=== PATIENT | male | born 1955 | race Caucasian/White ===

== ENCOUNTER 2016-06-21 11:59 | Emergency (ER) | payer BC, OTHER ==
[2016-06-21] MEDS ORDERED: IPRATROPIUM 0.5MG/ALBUTEROL 2.5MG INH SOL UD 3ML (DUONEB)(J7620) As Ordered ONE (12:40)
[2016-06-21] MEDS ORDERED: ALBUTEROL SULFATE 2.5 MG/0.5 ML INH NEB SOLN As Ordered ONE (12:40)
[2016-06-21] MEDS ORDERED: IBUPROFEN 600 MG TAB As Ordered ONE (12:41)
--- NOTE | 2016-06-21 13:06 | REP ---
Clinical: Cough . Comparison: 09/15/2015 . Technique: PA and lateral. Findings: The mediastinum and cardiac silhouette are normal. The lung rodriguez suggest scattered atelectasis and peribronchial thickening suggesting bronchitis and without acute consolidation, effusion, or pneumothorax. The skeletal structures are intact and normal. Impression: 1. Possible bronchitis. No focal consolidation. Signed by Rosalio Orlando MD 06/21/2016 12:56 P
--- NOTE | 2016-06-21 13:41 | EDDOCDS ---
Physician Documentation [facility] Name: Tone Wright Age: 61 yrs Sex: Male : 1955 Arrival Date: 06/21/2016 Time: 11:59 Bed I9 / 22 Private MD: Laina Cota E Disposition: 06/21/16 13:19 Discharged to Home/Self Care. Impression: Acute bronchitis. - Condition is Stable. - Discharge Instructions: Acute Bronchitis. - Prescriptions for Claritin- D 12 Hour 5-120 mg Oral Tablet Sustained Release 12 hr - take 1 tablet by ORAL route every 12 hours As needed; 30 tablet. Moxifloxacin 400 mg Oral Tablet - take 1 tablet by ORAL route once daily; 7 tablet. - Medication Reconciliation, Local Pharmacy Hours form. - Follow up: Laina Cota; When: 2 - 3 days; Reason: Recheck today's complaints, Continuance of care. - Problem is an ongoing problem. - Symptoms are unchanged. Historical: - Allergies: SULFA (SULFONAMIDES); velocef; Medrol; - Home Meds: 1. Advair Diskus 250-50 mcg/dose Inhl dsdv 1 puff 2 times per day 2. levothyroxine 125 mcg Oral tab 1 tab once daily 3. Nava 180 mg Oral tab 1 tab once daily 4. Singulair 10 mg Oral tab 1 tab once daily 5. Nasonex 50 mcg/actuation Nasal spry 2 sprays once daily 6. Ventolin HFA 90 mcg/actuation Nebulizer HFAA 2 puffs every 4-6 hours - PMHx: Hypothyroidism; Asthma; Aneurysm; - PSHx: none; - Social history: Smoking status: Patient states was never smoker of tobacco. No barriers to communication noted, The patient speaks fluent Belarusian. - Family history: Not pertinent. - : The pt / caregiver states he / she is not on anticoagulants. Home medication list is obtained from family members. - Exposure Risk Screening:: None identified. Vital Signs: 06/21 12:01 BP 114 / 67; Pulse 89; Resp 18 S; Temp 102.7(O); Pulse Ox 96% on R/A; Weight 81.65 kg / dd6 180.01 lbs (R); Height 5 ft. 4 in. (162.56 cm) (R); 12:01 Body Mass Index 30.90 (81.65 kg, 162.56 cm) dd6 MDM: 12:34 Obtain sample by nasopharyngeal swab ordered. ke 12:34 Albuterol 5 mg Nebulizer once ordered. ke 12:34 Albuterol-Ipratropium 3 ml Inhalation once ordered. ke 12:34 Call Respiratory ordered. ke 12:34 Ibuprofen 600 mg PO once ordered. ke 12:35 -Influenza A&B Rapid Antigen - Nose Ordered. EDMS 12:35 Chest, 2 View (pa\E\lat) Ordered. EDMS 12:37 Call Respiratory complete. jam1 13:40 Financial registration complete. lg Administered Medications: 12:45 Drug: Ibuprofen 600 mg [ibuprofen 600 mg tablet (1 tabs)] Route: PO; kr3 12:50 Drug: Albuterol 5 mg [albuterol sulfate 2.5 mg/0.5 mL solution for nebulization (1 mL)] cs15 Route: Nebulizer; 12:51 Drug: Albuterol-Ipratropium 3 ml [ipratropium-albuterol 0.5 mg-3 mg(2.5 mg base)/3 mL cs15 nebulization soln (3 mL)] Route: Inhalation; Signatures: Dispatcher [employer] EDMS Martha Mar, CAR STEREO INSTALLER CAR STEREO INSTALLER jam1 Tonia Gaston, José Reg lg Richard Trivedi, WARDROBE ASSISTANT WARDROBE ASSISTANT Gerri Ballesteros,RN RN kr3 Martha Brown,RN Shania An RN RN ms18 Alejandro Bowman RT cs15 MTDD
--- NOTE | 2016-06-21 13:41 | EDDOCDS ---
Nurse's Notes [facility] Name: Tone Wright Age: 61 yrs Sex: Male : 1955 Arrival Date: 06/21/2016 Time: 11:59 Bed I9 / 22 Private MD: Laina Cota E Diagnosis: Acute bronchitis Presentation: 06/21 12:16 Presenting complaint: Patient states: Pt reports coughing and a fever, waking up every ms18 hour all night long and SOB. Adult Sepsis Screening: The patient does not have new or worsening altered mentation. Patient's respiratory rate is less than 22. Systolic blood pressure is greater than 100. Patient has a qSOFA score of 0- Negative Sepsis Screen. Suicide/Homicide risk assessment- the patient denies having any suicidal and/or homicidal ideations and does not present with any other emotional, behavioral or mental health complaints. Status: Patient is not a director of convention services or dependent. Transition of care: patient was not received from another setting of care. 12:16 Acuity: LORENZO Level 3 ms18 12:16 Method Of Arrival: Walkin/Carried/Asstd ms18 Triage Assessment: 12:21 General: Appears in no apparent distress, comfortable, Behavior is appropriate for age, ms18 cooperative. Pain: Location: head Pain currently is 8 out of 10 on a pain scale. HIV screening NA for this visit Offered previously. Neurological: Level of Consciousness is awake, alert, obeys commands, Oriented to person, place, time. Respiratory: Airway is patent Respiratory effort is even, unlabored, Reports shortness of breath cough that is productive. Derm: Skin is pink, warm & dry. Historical: - Allergies: SULFA (SULFONAMIDES); velocef; Medrol; - Home Meds: 1. Advair Diskus 250-50 mcg/dose Inhl dsdv 1 puff 2 times per day 2. levothyroxine 125 mcg Oral tab 1 tab once daily 3. Nava 180 mg Oral tab 1 tab once daily 4. Singulair 10 mg Oral tab 1 tab once daily 5. Nasonex 50 mcg/actuation Nasal spry 2 sprays once daily 6. Ventolin HFA 90 mcg/actuation Nebulizer HFAA 2 puffs every 4-6 hours - PMHx: Hypothyroidism; Asthma; Aneurysm; - PSHx: none; - Social history: Smoking status: Patient states was never smoker of tobacco. No barriers to communication noted, The patient speaks fluent Thai. - Family history: Not pertinent. - : The pt / caregiver states he / she is not on anticoagulants. Home medication list is obtained from family members. - Exposure Risk Screening:: None identified. Screenin:01 Infection Control. dd6 12:49 Screening information is obtained from the patient. Fall risk: No risks identified. kr3 Assistance ADL's: requires no assistance with activities of daily living. Abuse/DV Screen: The patient / caregiver reports he/she is: not in a situation that causes fear, pain or injury. Nutritional screening: No deficits noted. Advance Directives: Currently, there is no health care proxy. home support is adequate. Assessment: 12:49 General: Appears in no apparent distress, comfortable, Behavior is cooperative. Pain: kr3 Denies pain. Neurological: Level of Consciousness is awake, alert. EENT: Reports nasal congestion. Respiratory: Airway is patent Respiratory effort is even, Reports cough that is chest congestion. Derm: Skin is normal. 13:37 General: Appears in no apparent distress, comfortable, Behavior is appropriate for age, cjh cooperative. General: first contact with patient to review discharge instructions, encouraged and answered questions, patient denies further needs. Pain: Denies pain. Neurological: Level of Consciousness is awake, alert, Oriented to person, place, time. Respiratory: Airway is patent Respiratory effort is even, unlabored, Respiratory pattern is. Derm: Skin is pink, warm & dry. Vital Signs: 12:01 BP 114 / 67; Pulse 89; Resp 18 S; Temp 102.7(O); Pulse Ox 96% on R/A; Weight 81.65 kg dd6 (R); Height 5 ft. 4 in. (162.56 cm) (R); 12:01 Body Mass Index 30.90 (81.65 kg, 162.56 cm) dd6 Vitals: 12:01 Log In Time: June 21, 2016 at 12:00. dd6 ED Course: 12:00 Patient visited by Phoenix Jerez PCA. dd6 12:00 Patient moved to Waiting dd6 12:01 Laina Cota is Private Physician. dd6 12:02 Patient moved to Pre RCE dd6 12:18 Triage Initiated ms18 12:33 [facility]edi FNP [facility]. ke 12:33 Patient visited by Richard Trivedi FNP. ke 12:33 Patient moved to ke 12:38 Patient visited by Richard Trivedi FNP. ke 12:45 -Influenza A&B Rapid Antigen - Nose Sent. kr3 12:49 The patient / caregiver is instructed regarding the plan of care and ED course. kr3 Accompanied by Family Member, Patient has correct armband on for positive identification. Bed in low position. Call light in reach. Side rails up X 1. 13:13 Patient visited by Richard Trivedi FNP. ke 13:19 Laina Cota is Referral Physician. ke 13:22 Chest, 2 View (pa\E\lat) Returned. EDMS 13:37 No IV's were initiated during this patient's visit. No procedures done that require [facility] assistance. Administered Medications: 12:45 Drug: Ibuprofen 600 mg [ibuprofen 600 mg tablet (1 tabs)] Route: PO; kr3 12:50 Drug: Albuterol 5 mg [albuterol sulfate 2.5 mg/0.5 mL solution for nebulization (1 mL)] cs15 Route: Nebulizer; 12:51 Drug: Albuterol-Ipratropium 3 ml [ipratropium-albuterol 0.5 mg-3 mg(2.5 mg base)/3 mL cs15 nebulization soln (3 mL)] Route: Inhalation; RT: 12:51 Initial Med Neb Given as ordered Patient tolerated procedure well without adverse cs15 effect. Respiratory: Respiratory effort is labored, Respiratory pattern is regular Breath sounds are diminished bilaterally. Very diminished lung sounds. 13:02 Respiratory: Breath sounds are coarse bilaterally. cs15 Order Results: Lab Order: -Influenza A&B Rapid Antigen - Nose; SPEC'M 06/21/16 12:44 Test: INFLUENZA A RAPID SCR by ICA; Value: INFLUENZA A RESULTS NEGATIVE; Status: F Test: INFLUENZA A RAPID SCR by ICA; Value: Comments:; Status: F Test: INFLUENZA B RAPID SCR by ICA; Value: INFLUENZA B RESULTS NEGATIVE; Status: F Test Note: ; The Influenza test is a direct rapid immunoassay for the qualitative detection of Influenza viral antigen. Cell culture (Viral Culture) testing should be considered to confirm NEGATIVE results and to assist in detecting other viruses that can provide similar clinical symptoms. Please contact the lab within 24 hours ([phone]) if confirmatory testing is desired. Radiology Order: Chest, 2 View (pa\E\lat) Test: Chest, 2 View (pa\E\lat) REASON FOR EXAMINATION: Cough; Clinical: Cough .; ; Comparison: 09/15/2015 .; ; Technique: PA and lateral.; ; Findings:; The mediastinum and cardiac silhouette are normal. The lung rodriguez suggest; scattered atelectasis and peribronchial thickening suggesting bronchitis and; without acute consolidation, effusion, or pneumothorax. The skeletal structures; are intact and normal.; ; Impression:; 1. Possible bronchitis. No focal consolidation.; ; ; Signed by; Rosalio Orlando MD 06/21/2016 12:56 P; Outcome: 13:19 Discharge ordered by Provider. patsy 13:37 Discharge Assessment: Patient awake, alert and oriented x 3. No cognitive and/or [facility] functional deficits noted. Patient verbalized understanding of disposition instructions. patient administered narcotics - no. The following High Risk Discharge criteria are identified: None. Discharged to home ambulatory. Condition: good Condition: stable Condition: improved. Discharge instructions given to patient, Instructed on discharge instructions, follow up and referral plans. medication usage, Demonstrated understanding of instructions, medications, Pt was receptive of discharge instructions/ teaching. Prescriptions given X 2. No special radiology studies were completed. Property :Personal belongings accompany Pt. 13:40 Patient left the ED. [facility] Signatures: Dispatcher [employer] EDMS Richard Trivedi, SUPERVISOR FABRICATION AND ASSEMBLY SUPERVISOR FABRICATION AND ASSEMBLY Gerri BallesterosRN RN salvatore3 Phoenix Jerez, AWAKE OVERNIGHT COUNSELOR AWAKE OVERNIGHT COUNSELOR dd6 Martha Brown RN RN [facility] Shania Tejeda RN RN ms18 Alejandro Bowman,RT RT cs15 MTDD
--- NOTE | 2016-06-23 14:42 | EDDOCDS ---
Physician Documentation [facility] Name: Tone Wright Age: 61 yrs Sex: Male : 1955 Arrival Date: 06/21/2016 Time: 11:59 Bed I9 / 22 Private MD: Laina Cota E Disposition: 06/21/16 13:19 Discharged to Home/Self Care. Impression: Acute bronchitis. - Condition is Stable. - Discharge Instructions: Acute Bronchitis. - Prescriptions for Claritin- D 12 Hour 5-120 mg Oral Tablet Sustained Release 12 hr - take 1 tablet by ORAL route every 12 hours As needed; 30 tablet. Moxifloxacin 400 mg Oral Tablet - take 1 tablet by ORAL route once daily; 7 tablet. - Medication Reconciliation, Local Pharmacy Hours form. - Follow up: Laina Cota; When: 2 - 3 days; Reason: Recheck today's complaints, Continuance of care. - Problem is an ongoing problem. - Symptoms are unchanged. Historical: - Allergies: SULFA (SULFONAMIDES); velocef; Medrol; - Home Meds: 1. Advair Diskus 250-50 mcg/dose Inhl dsdv 1 puff 2 times per day 2. levothyroxine 125 mcg Oral tab 1 tab once daily 3. Nava 180 mg Oral tab 1 tab once daily 4. Singulair 10 mg Oral tab 1 tab once daily 5. Nasonex 50 mcg/actuation Nasal spry 2 sprays once daily 6. Ventolin HFA 90 mcg/actuation Nebulizer HFAA 2 puffs every 4-6 hours - PMHx: Hypothyroidism; Asthma; Aneurysm; - PSHx: none; - Social history: Smoking status: Patient states was never smoker of tobacco. No barriers to communication noted, The patient speaks fluent Irish. - Family history: Not pertinent. - : The pt / caregiver states he / she is not on anticoagulants. Home medication list is obtained from family members. - Exposure Risk Screening:: None identified. Vital Signs: 06/21 12:01 BP 114 / 67; Pulse 89; Resp 18 S; Temp 102.7(O); Pulse Ox 96% on R/A; Weight 81.65 kg / dd6 180.01 lbs (R); Height 5 ft. 4 in. (162.56 cm) (R); 13:40 BP 122 / 72; Pulse 82; Resp 18; Temp 101.3; Pulse Ox 96% ; Pain 2/10; jam1 12:01 Body Mass Index 30.90 (81.65 kg, 162.56 cm) dd6 MDM: 12:34 Obtain sample by nasopharyngeal swab ordered. ke 12:34 Albuterol 5 mg Nebulizer once ordered. ke 12:34 Albuterol-Ipratropium 3 ml Inhalation once ordered. ke 12:34 Call Respiratory ordered. ke 12:34 Ibuprofen 600 mg PO once ordered. ke 12:35 -Influenza A&B Rapid Antigen - Nose Ordered. EDMS 12:35 Chest, 2 View (pa\E\lat) Ordered. EDMS 12:37 Call Respiratory complete. jam1 13:40 Financial registration complete. lg 14:41 T-Sheet-- Draft Copy was scanned into Contrib and attached to record. gb 15:16 COUNT INCLUDES THE [facility] Payment Agreement was scanned into Contrib and attached to record. lg Administered Medications: 12:45 Drug: Ibuprofen 600 mg [ibuprofen 600 mg tablet (1 tabs)] Route: PO; kr3 12:50 Drug: Albuterol 5 mg [albuterol sulfate 2.5 mg/0.5 mL solution for nebulization (1 mL)] cs15 Route: Nebulizer; 12:51 Drug: Albuterol-Ipratropium 3 ml [ipratropium-albuterol 0.5 mg-3 mg(2.5 mg base)/3 mL cs15 nebulization soln (3 mL)] Route: Inhalation; Signatures: Dispatcher [employer] EDMS Martha Mar, BARNWORKER GROOM BARNWORKER GROOM jam1 Olivia Salcedo, Reg Reg gb Tonia Gaston, Reg Reg lg Richard Trivedi, HOME HEALTH AID HOME HEALTH AID Gerri Ballesteros,RN RN kr3 Martha Brown,RN Shania An,RN RN ms18 Alejandro Bowman RT cs15 The chart was reviewed and I authenticate all verbal orders and agree with the evaluation and treatment provided.Attachments: 14:41 T-Sheet-- Draft Copy gb 15:16 COUNT INCLUDES THE [facility] Payment Agreement lg Chart Complete MTDD
--- NOTE | 2016-06-23 14:42 | EDDOCDS ---
Physician Documentation [facility] Name: Tone Wright Age: 61 yrs Sex: Male : 1955 Arrival Date: 06/21/2016 Time: 11:59 Bed I9 / 22 Private MD: Laina Cota E Disposition: 06/21/16 13:19 Discharged to Home/Self Care. Impression: Acute bronchitis. - Condition is Stable. - Discharge Instructions: Acute Bronchitis. - Prescriptions for Claritin- D 12 Hour 5-120 mg Oral Tablet Sustained Release 12 hr - take 1 tablet by ORAL route every 12 hours As needed; 30 tablet. Moxifloxacin 400 mg Oral Tablet - take 1 tablet by ORAL route once daily; 7 tablet. - Medication Reconciliation, Local Pharmacy Hours form. - Follow up: Laina Cota; When: 2 - 3 days; Reason: Recheck today's complaints, Continuance of care. - Problem is an ongoing problem. - Symptoms are unchanged. Historical: - Allergies: SULFA (SULFONAMIDES); velocef; Medrol; - Home Meds: 1. Advair Diskus 250-50 mcg/dose Inhl dsdv 1 puff 2 times per day 2. levothyroxine 125 mcg Oral tab 1 tab once daily 3. Nava 180 mg Oral tab 1 tab once daily 4. Singulair 10 mg Oral tab 1 tab once daily 5. Nasonex 50 mcg/actuation Nasal spry 2 sprays once daily 6. Ventolin HFA 90 mcg/actuation Nebulizer HFAA 2 puffs every 4-6 hours - PMHx: Hypothyroidism; Asthma; Aneurysm; - PSHx: none; - Social history: Smoking status: Patient states was never smoker of tobacco. No barriers to communication noted, The patient speaks fluent Romanian. - Family history: Not pertinent. - : The pt / caregiver states he / she is not on anticoagulants. Home medication list is obtained from family members. - Exposure Risk Screening:: None identified. Vital Signs: 06/21 12:01 BP 114 / 67; Pulse 89; Resp 18 S; Temp 102.7(O); Pulse Ox 96% on R/A; Weight 81.65 kg / dd6 180.01 lbs (R); Height 5 ft. 4 in. (162.56 cm) (R); 13:40 BP 122 / 72; Pulse 82; Resp 18; Temp 101.3; Pulse Ox 96% ; Pain 2/10; jam1 12:01 Body Mass Index 30.90 (81.65 kg, 162.56 cm) dd6 MDM: 12:34 Obtain sample by nasopharyngeal swab ordered. ke 12:34 Albuterol 5 mg Nebulizer once ordered. ke 12:34 Albuterol-Ipratropium 3 ml Inhalation once ordered. ke 12:34 Call Respiratory ordered. ke 12:34 Ibuprofen 600 mg PO once ordered. ke 12:35 -Influenza A&B Rapid Antigen - Nose Ordered. EDMS 12:35 Chest, 2 View (pa\E\lat) Ordered. EDMS 12:37 Call Respiratory complete. jam1 13:40 Financial registration complete. lg 14:41 T-Sheet-- Draft Copy was scanned into [employer] and attached to record. gb 15:16 [facility] Payment Agreement was scanned into [employer] and attached to record. lg Administered Medications: 12:45 Drug: Ibuprofen 600 mg [ibuprofen 600 mg tablet (1 tabs)] Route: PO; kr3 12:50 Drug: Albuterol 5 mg [albuterol sulfate 2.5 mg/0.5 mL solution for nebulization (1 mL)] cs15 Route: Nebulizer; 12:51 Drug: Albuterol-Ipratropium 3 ml [ipratropium-albuterol 0.5 mg-3 mg(2.5 mg base)/3 mL cs15 nebulization soln (3 mL)] Route: Inhalation; Signatures: Dispatcher Med[employer] EDMS Martha Mar, DOG FOOD DOUGH MIXER DOG FOOD DOUGH MIXER jam1 Olivia Salcedo, Reg Reg gb Tonia Gaston, Reg Reg lg Richard Trivedi, SINGLE CORNER CUTTER SINGLE CORNER CUTTER Greri Ballesteros,RN RN kr3 Martha Brown,RN Shania An,RN RN ms18 Alejandro Bowman RT cs15 The chart was reviewed and I authenticate all verbal orders and agree with the evaluation and treatment provided.Attachments: 14:41 T-Sheet-- Draft Copy gb 15:16 [facility] Payment Agreement lg Chart Complete MTDD
--- NOTE | 2016-06-23 14:42 | EDDOCDS ---
Nurse's Notes [facility] Name: Tone Wright Age: 61 yrs Sex: Male : 1955 Arrival Date: 06/21/2016 Time: 11:59 Bed I9 / 22 Private MD: Laina Cota E Diagnosis: Acute bronchitis Presentation: 06/21 12:16 Presenting complaint: Patient states: Pt reports coughing and a fever, waking up every ms18 hour all night long and SOB. Adult Sepsis Screening: The patient does not have new or worsening altered mentation. Patient's respiratory rate is less than 22. Systolic blood pressure is greater than 100. Patient has a qSOFA score of 0- Negative Sepsis Screen. Suicide/Homicide risk assessment- the patient denies having any suicidal and/or homicidal ideations and does not present with any other emotional, behavioral or mental health complaints. Status: Patient is not a service associate or dependent. Transition of care: patient was not received from another setting of care. 12:16 Acuity: LORENZO Level 3 ms18 12:16 Method Of Arrival: Walkin/Carried/Asstd ms18 Triage Assessment: 12:21 General: Appears in no apparent distress, comfortable, Behavior is appropriate for age, ms18 cooperative. Pain: Location: head Pain currently is 8 out of 10 on a pain scale. HIV screening NA for this visit Offered previously. Neurological: Level of Consciousness is awake, alert, obeys commands, Oriented to person, place, time. Respiratory: Airway is patent Respiratory effort is even, unlabored, Reports shortness of breath cough that is productive. Derm: Skin is pink, warm & dry. Historical: - Allergies: SULFA (SULFONAMIDES); velocef; Medrol; - Home Meds: 1. Advair Diskus 250-50 mcg/dose Inhl dsdv 1 puff 2 times per day 2. levothyroxine 125 mcg Oral tab 1 tab once daily 3. Nava 180 mg Oral tab 1 tab once daily 4. Singulair 10 mg Oral tab 1 tab once daily 5. Nasonex 50 mcg/actuation Nasal spry 2 sprays once daily 6. Ventolin HFA 90 mcg/actuation Nebulizer HFAA 2 puffs every 4-6 hours - PMHx: Hypothyroidism; Asthma; Aneurysm; - PSHx: none; - Social history: Smoking status: Patient states was never smoker of tobacco. No barriers to communication noted, The patient speaks fluent [place]. - Family history: Not pertinent. - : The pt / caregiver states he / she is not on anticoagulants. Home medication list is obtained from family members. - Exposure Risk Screening:: None identified. Screenin:01 Infection Control. dd6 12:49 Screening information is obtained from the patient. Fall risk: No risks identified. kr3 Assistance ADL's: requires no assistance with activities of daily living. Abuse/DV Screen: The patient / caregiver reports he/she is: not in a situation that causes fear, pain or injury. Nutritional screening: No deficits noted. Advance Directives: Currently, there is no health care proxy. home support is adequate. Assessment: 12:49 General: Appears in no apparent distress, comfortable, Behavior is cooperative. Pain: kr3 Denies pain. Neurological: Level of Consciousness is awake, alert. EENT: Reports nasal congestion. Respiratory: Airway is patent Respiratory effort is even, Reports cough that is chest congestion. Derm: Skin is normal. 13:37 General: Appears in no apparent distress, comfortable, Behavior is appropriate for age, cjh cooperative. General: first contact with patient to review discharge instructions, encouraged and answered questions, patient denies further needs. Pain: Denies pain. Neurological: Level of Consciousness is awake, alert, Oriented to person, place, time. Respiratory: Airway is patent Respiratory effort is even, unlabored, Respiratory pattern is. Derm: Skin is pink, warm & dry. Vital Signs: 12:01 BP 114 / 67; Pulse 89; Resp 18 S; Temp 102.7(O); Pulse Ox 96% on R/A; Weight 81.65 kg dd6 (R); Height 5 ft. 4 in. (162.56 cm) (R); 13:40 BP 122 / 72; Pulse 82; Resp 18; Temp 101.3; Pulse Ox 96% ; Pain 2/10; jam1 12:01 Body Mass Index 30.90 (81.65 kg, 162.56 cm) dd6 Vitals: 12:01 Log In Time: June 21, 2016 at 12:00. dd6 ED Course: 12:00 Patient visited by Phoenix Jerez, TANYA. dd6 12:00 Patient moved to Waiting dd6 12:01 Laina Cota is Private Physician. dd6 12:02 Patient moved to Pre RCE dd6 12:18 Triage Initiated ms18 12:33 [facility]. ke 12:33 Patient visited by Richard Trivedi FNP. ke 12:33 Patient moved to I ke 12:38 Patient visited by Richard Trivedi FNP. ke 12:45 -Influenza A&B Rapid Antigen - Nose Sent. kr3 12:49 The patient / caregiver is instructed regarding the plan of care and ED course. kr3 Accompanied by Family Member, Patient has correct armband on for positive identification. Bed in low position. Call light in reach. Side rails up X 1. 13:13 Patient visited by Richard Trivedi FNP. ke 13:19 Laina Cota is Referral Physician. ke 13:22 Chest, 2 View (pa\E\lat) Returned. EDMS 13:37 No IV's were initiated during this patient's visit. No procedures done that require [facility] assistance. 14:41 T-Sheet-- Draft Copy was scanned into [employer] and attached to record. gb 15:16 [facility] Payment Agreement was scanned into [employer] and attached to record. lg Administered Medications: 12:45 Drug: Ibuprofen 600 mg [ibuprofen 600 mg tablet (1 tabs)] Route: PO; kr3 12:50 Drug: Albuterol 5 mg [albuterol sulfate 2.5 mg/0.5 mL solution for nebulization (1 mL)] cs15 Route: Nebulizer; 12:51 Drug: Albuterol-Ipratropium 3 ml [ipratropium-albuterol 0.5 mg-3 mg(2.5 mg base)/3 mL cs15 nebulization soln (3 mL)] Route: Inhalation; RT: 12:51 Initial Med Neb Given as ordered Patient tolerated procedure well without adverse cs15 effect. Respiratory: Respiratory effort is labored, Respiratory pattern is regular Breath sounds are diminished bilaterally. Very diminished lung sounds. 13:02 Respiratory: Breath sounds are coarse bilaterally. cs15 Order Results: Lab Order: -Influenza A&B Rapid Antigen - Nose; SPEC'M 06/21/16 12:44 Test: INFLUENZA A RAPID SCR by ICA; Value: INFLUENZA A RESULTS NEGATIVE; Status: F Test: INFLUENZA A RAPID SCR by ICA; Value: Comments:; Status: F Test: INFLUENZA B RAPID SCR by ICA; Value: INFLUENZA B RESULTS NEGATIVE; Status: F Test Note: ; The Influenza test is a direct rapid immunoassay for the qualitative detection of Influenza viral antigen. Cell culture (Viral Culture) testing should be considered to confirm NEGATIVE results and to assist in detecting other viruses that can provide similar clinical symptoms. Please contact the lab within 24 hours ([phone]) if confirmatory testing is desired. Radiology Order: Chest, 2 View (pa\E\lat) Test: Chest, 2 View (pa\E\lat) REASON FOR EXAMINATION: Cough; Clinical: Cough .; ; Comparison: 09/15/2015 .; ; Technique: PA and lateral.; ; Findings:; The mediastinum and cardiac silhouette are normal. The lung rodriguez suggest; scattered atelectasis and peribronchial thickening suggesting bronchitis and; without acute consolidation, effusion, or pneumothorax. The skeletal structures; are intact and normal.; ; Impression:; 1. Possible bronchitis. No focal consolidation.; ; ; Signed by; Rosalio Orlando MD 06/21/2016 12:56 P; Outcome: 13:19 Discharge ordered by Provider. patsy 13:37 Discharge Assessment: Patient awake, alert and oriented x 3. No cognitive and/or [facility] functional deficits noted. Patient verbalized understanding of disposition instructions. patient administered narcotics - no. The following High Risk Discharge criteria are identified: None. Discharged to home ambulatory. Condition: good Condition: stable Condition: improved. Discharge instructions given to patient, Instructed on discharge instructions, follow up and referral plans. medication usage, Demonstrated understanding of instructions, medications, Pt was receptive of discharge instructions/ teaching. Prescriptions given X 2. No special radiology studies were completed. Property :Personal belongings accompany Pt. 13:40 Patient left the ED. [facility] Signatures: Dispatcher [employer] EDMS Martha Mar, CONTROL SYSTEMS ENG CONTROL SYSTEMS ENG jam1 Olivia Salcedo, Reg Reg gb Tonia Gaston, Reg Reg lg Richard Trivedi, [employer] Gerri Ballesteros,RN RN kr3 Phoenix Jerez, CONTROL SYSTEMS ENG CONTROL SYSTEMS ENG dd6 Martha Brown,RN TRISHA [facility] Shania Tejeda RN RN ms18 Alejandro Bowman,RT RT cs15 Chart Complete MTDD
== END 2016-06-21 13:40 | disposition home or self-care (01) ==
LOC: M ED 11:59
DX: J20.9 Acute bronchitis, unspecified (principal); J45.909 Unspecified asthma, uncomplicated; E03.9 Hypothyroidism, unspecified; Z79.51 Long term (current) use of inhaled steroids; Z79.899 Other long term (current) drug therapy; Z88.2 Allergy status to sulfonamides; Z88.1 Allergy status to other antibiotic agents; Z88.8 Allergy status to other drugs, medicaments and biological substances

== ENCOUNTER → 2016-06-23 | Outpatient (REF) | payer OTHER | LOC: M LAB REF 12:32 | PROVIDERS: ATTEND Internal Medicine | DX: R50.9 Fever, unspecified (principal); J20.9 Acute bronchitis, unspecified ==

== ENCOUNTER → 2016-06-30 | Outpatient (REF) | payer OTHER | LOC: M LAB REF 16:27 | PROVIDERS: ATTEND Internal Medicine | DX: J18.9 Pneumonia, unspecified organism (principal); R06.02 Shortness of breath; J45.21 Mild intermittent asthma with (acute) exacerbation ==

== ENCOUNTER 2017-05-16 20:23 | Emergency (ER) | payer OTHER ==
[~2017-05-16] VITALS: Ht 162.6 cm; Wt 78.2 kg
[2017-05-16] MEDS ORDERED: SYNT100T PO (20:45)
[2017-05-16] MEDS ORDERED: SING10TA32 PO (20:45)
[2017-05-16] MEDS ORDERED: LEVA1.25 INH (20:45)
[2017-05-16] MEDS ORDERED: ALLE180T33 PO (20:45)
[2017-05-16] MEDS ORDERED: FLUT1LOT EX (20:45)
[2017-05-16] MEDS ORDERED: ADV250INH INH (20:45)
[2017-05-16] MEDS ORDERED: TYLE500T78 PO (20:48)
[2017-05-17] MEDS ORDERED: NS 500 ML IV ONE (02:45)
[2017-05-17 03:19] LABS: BASO % 0.5 % (0.0-1.0); EOS % 0.1 % (0.0-3.0); IMMATURE GRANULOCYTE % 0.1 % (0-0); LYMPH # 1.2 10^3/uL (1.5-4.5); LYMPH % 16.4 % (24.0-44.0); MEAN CORPUSCULAR HEMOGLOBIN 26.1 pg (27.0-33.0); MEAN CORPUSCULAR HGB CONC 32.4 g/dl (32.0-36.5); MEAN CORPUSCULAR VOLUME 80.5 fl (80.0-96.0); MONO # 1.3 10^3/uL (0.0-0.8); MONO % 17.6 % (0.0-5.0); NEUTROPHILS # 4.8 10^3/uL (1.8-7.7); NEUTROPHILS % 65.3 % (36.0-66.0); PLATELET COUNT, AUTOMATED 188 10^3/uL (150-450); RED CELL DISTRIBUTION WIDTH 18.7 % (11.5-14.5); WHITE BLOOD COUNT 7.4 10^3/uL (4.0-10.0)
[2017-05-17] MEDS: IPRATROPIUM 0.5MG/ALBUTEROL 2.5MG INH SOL UD 3ML (DUONEB)(J7620) NEB SCH ×2 (03:24→03:25)
[2017-05-17 03:46] LABS: ANION GAP 7 MEQ/L (8-16); BLOOD UREA NITROGEN 12 MG/DL (7-18); CALCIUM LEVEL 8.7 MG/DL (8.5-10.1); CARBON DIOXIDE LEVEL 29 MEQ/L (21-32); CHLORIDE LEVEL 104 MEQ/L (98-107); CREATININE FOR GFR 1.14 MG/DL (0.70-1.30); GLOMERULAR FILTRATION RATE > 60.0 (>56); GLUCOSE, FASTING 95 MG/DL (70-105); POTASSIUM SERUM 4.3 MEQ/L (3.5-5.1); SODIUM LEVEL 140 MEQ/L (136-145)
[2017-05-17] MEDS ORDERED: LEVA750T7 PO (05:19)
[2017-05-17] MEDS ORDERED: TESS100C PO (05:19)
[2017-05-17 05:29] VITALS: BP 134/74
[2017-05-17] MEDS ORDERED: LevoFLOXacin 750 MG TABLET PO ONE (05:30)
--- NOTE | 2017-05-17 07:55 | REP ---
Clinical: Shortness of breath . Comparison: 06/21/2016 . Technique: PA and lateral. Findings: The mediastinum and cardiac silhouette are normal. Trace basilar atelectasis cannot be excluded without acute consolidation, effusion, or pneumothorax. The skeletal structures are intact and normal. Impression: 1. Question trace basilar atelectasis based on lateral radiograph. Signed by Rosalio Orlando MD 05/17/2017 07:46 A
== END 2017-05-17 05:30 | disposition home or self-care (01) ==
LOC: M ED 20:23
DX: J18.9 Pneumonia, unspecified organism (principal); Z88.8 Allergy status to other drugs, medicaments and biological substances; Z88.2 Allergy status to sulfonamides; Z88.1 Allergy status to other antibiotic agents; Z79.899 Other long term (current) drug therapy; Z79.51 Long term (current) use of inhaled steroids

== ENCOUNTER → 2017-05-19 | Outpatient (CLI) | payer OTHER ==
[~2017-05-19] MED LIST: ADV250INH INH; ALLE180T33 PO; FLUT1LOT EX; LEVA1.25 INH; LEVA750T7 PO; SING10TA32 PO; SYNT100T PO; TESS100C PO; TYLE500T78 PO
--- NOTE | 2017-05-19 15:33 | REP ---
Chest two views HISTORY: Cough Comparison: 05/16/2017 The lungs are clear. The heart is normal in size. The pulmonary vasculature is normal in appearance. The bony structure is intact. IMPRESSION: No acute disease. Signed by Shahzad Dumont MD 05/19/2017 03:26 P
== END ==
LOC: M WUC 15:06
PROVIDERS: ATTEND Internal Medicine
DX: R05 Cough (principal)

== ENCOUNTER → 2017-05-19 | Outpatient (REF) | payer OTHER | LOC: M LAB REF 18:21 | PROVIDERS: ATTEND Internal Medicine | DX: J18.8 Other pneumonia, unspecified organism (principal) ==

== ENCOUNTER 2017-07-18 11:24 | Emergency (ER) | payer OTHER ==
[2017-07-18] MEDS: LIDOCAINE W/EPINEPHRINE 1% 20ML VIAL SC (12:00)
[2017-07-18] MEDS: ADACEL/BOOSTRIX VACCINE (DIPHTH/PERTUSS/ACELL/TETANUS)0.5ML SYR (90715) IM (12:00)
[2017-07-18] MEDS ORDERED: NEOSPORIN OINT 0.9 GM PKT (FLOOR STOCK) As Ordered (12:32)
== END 2017-07-18 13:33 | disposition home or self-care (01) ==
LOC: M ED 11:24
DX: S61.511A Laceration without foreign body of right wrist, initial encounter (principal); W26.0XXA Contact with knife, initial encounter; Y92.9 Unspecified place or not applicable; Y93.89 Activity, other specified; Y99.0 Civilian activity done for income or pay; I34.1 Nonrheumatic mitral (valve) prolapse; E03.9 Hypothyroidism, unspecified; J45.909 Unspecified asthma, uncomplicated; Z79.899 Other long term (current) drug therapy; Z88.8 Allergy status to other drugs, medicaments and biological substances; Z88.2 Allergy status to sulfonamides; Z88.1 Allergy status to other antibiotic agents
CPT/HCPCS: 90715

== ENCOUNTER → 2017-08-23 | Outpatient (REF) | payer OTHER ==
[2017-08-23 20:23] LABS: INFLUENZA A AMPLIFICATION POSITIVE (NEGATIVE); INFLUENZA B AMPLIFICATION NEGATIVE (NEGATIVE)
== END ==
LOC: M LAB REF 16:37
DX: B34.9 Viral infection, unspecified (principal)

== ENCOUNTER → 2018-01-03 | Outpatient (REF) | payer OTHER ==
[2018-01-03 18:04] LABS: FERRITIN 7 NG/ML (26-388); IRON (FE) 34 UG/DL (65-175); PERCENT SATURATION 8.3 % (19.7-50.0); TOTAL IRON BINDING CAPACITY 411 UG/DL (250-450)
== END ==
LOC: M LAB REF 17:22
DX: D64.9 Anemia, unspecified (principal)

== ENCOUNTER 2018-01-22 15:53 | Emergency (ER) | payer OTHER ==
[2018-01-22] MEDS: NS 1,000 ML IV (16:44)
[2018-01-22 16:49] LABS: BASO % 0.7 % (0.0-1.0); EOS # 0.1 10^3/uL (0.0-0.50); HEMATOCRIT 44.1 % (42.0-52.0); HEMOGLOBIN 14.1 g/dl (13.5-17.5); IMMATURE GRANULOCYTE % 0.3 % (0-3.0); LYMPH # 0.8 10^3/uL (1.5-4.5); LYMPH % 12.3 % (24.0-44.0); MEAN CORPUSCULAR HEMOGLOBIN 26.2 pg (27.0-33.0); MONO # 0.7 10^3/uL (0.0-0.8); MONO % 12.2 % (0.0-5.0); NEUTROPHILS # 4.5 10^3/uL (1.8-7.7); NEUTROPHILS % 73.5 % (36.0-66.0); PLATELET COUNT, AUTOMATED 162 10^3/uL (150-450); RED BLOOD COUNT 5.38 10^6/uL (4.30-6.10); RED CELL DISTRIBUTION WIDTH 18.3 % (11.5-14.5); WHITE BLOOD COUNT 6.1 10^3/uL (4.0-10.0)
[2018-01-22 16:52] LABS: KETONE, URINE AUTO RFX NEGATIVE (NEGATIVE); LEUKOCYTE ESTERASE UR AUTO RFX NEGATIVE (NEGATIVE); NITRITE, URINE AUTO RFX NEGATIVE (NEGATIVE); RBC, URINE AUTO RFX 1 /HPF (0-3); SQUAM EPITHELIAL CELL UR AURFX 0 /HPF (0-6); WBC, URINE AUTO RFX 1 /HPF (0-3)
[2018-01-22 17:41] LABS: ALBUMIN 3.5 GM/DL (3.2-5.2); ALBUMIN/GLOBULIN RATIO 0.83 (1.00-1.93); ALKALINE PHOSPHATASE 76 U/L (45-117); ALT/SGPT 30 U/L (12-78); ANION GAP 8 MEQ/L (8-16); AST/SGOT 23 U/L (7-37); BILIRUBIN,DIRECT 0.2 MG/DL (0.0-0.2); BILIRUBIN,TOTAL 0.7 MG/DL (0.2-1.0); BLOOD UREA NITROGEN 13 MG/DL (7-18); CALCIUM LEVEL 8.5 MG/DL (8.8-10.2); CARBON DIOXIDE LEVEL 25 MEQ/L (21-32); CHLORIDE LEVEL 112 MEQ/L (98-107); CREATININE FOR GFR 1.15 MG/DL (0.70-1.30); GLOMERULAR FILTRATION RATE > 60.0 (>49); GLUCOSE, FASTING 92 MG/DL (70-100); LIPASE 120 U/L (73-393); POTASSIUM SERUM 4.2 MEQ/L (3.5-5.1); SODIUM LEVEL 145 MEQ/L (136-145); TOTAL PROTEIN 7.7 GM/DL (6.4-8.2)
[2018-01-22] MEDS ORDERED: ISOVUE-370 76% 100ML VIAL (Q9967) As Ordered (18:00)
== END 2018-01-22 19:06 | disposition home or self-care (01) ==
LOC: M ED 15:53
DX: R10.9 Unspecified abdominal pain (principal); N28.1 Cyst of kidney, acquired; N40.0 Benign prostatic hyperplasia without lower urinary tract symptoms; I34.1 Nonrheumatic mitral (valve) prolapse; Z88.8 Allergy status to other drugs, medicaments and biological substances; Z88.2 Allergy status to sulfonamides; Z88.1 Allergy status to other antibiotic agents; Z79.899 Other long term (current) drug therapy; Z79.51 Long term (current) use of inhaled steroids
CPT/HCPCS: Q9967

== ENCOUNTER 2018-01-29 20:18 | Emergency (ER) | payer OTHER ==
[2018-01-29] MEDS: NS 1,000 ML IV (22:00)
[2018-01-29 22:24] LABS: HEMATOCRIT 37.7 % (42.0-52.0); HEMOGLOBIN 12.4 g/dl (13.5-17.5); MEAN CORPUSCULAR HEMOGLOBIN 25.9 pg (27.0-33.0); MEAN CORPUSCULAR HGB CONC 32.9 g/dl (32.0-36.5); MEAN CORPUSCULAR VOLUME 78.9 fl (80.0-96.0); PLATELET COUNT, AUTOMATED 269 10^3/uL (150-450); RED BLOOD COUNT 4.78 10^6/uL (4.30-6.10); RED CELL DISTRIBUTION WIDTH 18.6 % (11.5-14.5)
[2018-01-29 22:39] LABS: CONTROL LINE MONO INT CTR LINE PRESENT; MONO SCRN NEGATIVE (NEGATIVE)
[2018-01-29 22:41] LABS: ANION GAP 5 MEQ/L (8-16); BLOOD UREA NITROGEN 11 MG/DL (7-18); CALCIUM LEVEL 8.7 MG/DL (8.8-10.2); CARBON DIOXIDE LEVEL 27 MEQ/L (21-32); CHLORIDE LEVEL 103 MEQ/L (98-107); CREATININE FOR GFR 1.18 MG/DL (0.70-1.30); GLOMERULAR FILTRATION RATE > 60.0 (>49); GLUCOSE, FASTING 112 MG/DL (70-100); POTASSIUM SERUM 3.9 MEQ/L (3.5-5.1); SODIUM LEVEL 135 MEQ/L (136-145)
[2018-01-29 22:42] LABS: ERYTHROCYTE SEDIMENTATION RATE 30 mm/hr (0-20)
[2018-01-29 22:45] LABS: LACTIC ACID SEPSIS PROTOCOL 0.8 MMOL/L (0.4-2.0)
[2018-01-29 22:55] LABS: KETONE, URINE AUTO RFX TRACE mg/dL (NEGATIVE); LEUKOCYTE ESTERASE UR AUTO RFX NEGATIVE (NEGATIVE); MUCUS, URINE RFX SMALL (NEGATIVE); NITRITE, URINE AUTO RFX NEGATIVE (NEGATIVE); RBC, URINE AUTO RFX 2 /HPF (0-3); SQUAM EPITHELIAL CELL UR AURFX 0 /HPF (0-6); WBC, URINE AUTO RFX 2 /HPF (0-3)
[2018-01-29] MEDS: PIPERACILLIN/TAZOBACTAM SOD 3.375 GM in D5W MINI-BAG PLUS 50 ML IV (23:20)
[2018-01-29] MEDS: diphenhydrAMINE INJ 50MG/ML VIAL (J1200) IV (23:20)
== END 2018-01-30 00:31 | disposition home or self-care (01) ==
LOC: M ED 01-30 00:31
DX: L03.112 Cellulitis of left axilla (principal); J45.909 Unspecified asthma, uncomplicated; I34.1 Nonrheumatic mitral (valve) prolapse
CPT/HCPCS: J1200

== ENCOUNTER → 2018-02-13 | Outpatient (REF) | payer OTHER ==
[2018-02-13 19:30] LABS: C REACTIVE PROTEIN QUANTITATIV < 0.30 MG/DL (0.00-0.30)
== END ==
LOC: M LAB REF 17:16
DX: L03.114 Cellulitis of left upper limb (principal)

== ENCOUNTER 2018-03-09 10:54 | Day surgery (SDC) | payer OTHER ==
[2018-03-09] MEDS: NS 1,000 ML IV (11:15)
[2018-03-09] MEDS ORDERED: PROPOFOL 200 MG/20 ML VIAL As Ordered (11:55)
[2018-03-09] MEDS ORDERED: fentaNYL 100 MCG/2 ML INJECTION (J3010) As Ordered (11:55)
[2018-03-09] MEDS ORDERED: LIDOCAINE 2% INJ 100 MG/5 ML SDV (FOR ANES.) As Ordered (11:55)
== END 2018-03-09 13:29 | disposition home or self-care (01) ==
LOC: M OPP 10:54
DX: D50.9 Iron deficiency anemia, unspecified (principal); D12.5 Benign neoplasm of sigmoid colon; D12.4 Benign neoplasm of descending colon; D12.3 Benign neoplasm of transverse colon; D12.2 Benign neoplasm of ascending colon; K64.8 Other hemorrhoids; I34.1 Nonrheumatic mitral (valve) prolapse; E03.9 Hypothyroidism, unspecified; K21.9 Gastro-esophageal reflux disease without esophagitis; R12 Heartburn; J45.909 Unspecified asthma, uncomplicated; Z88.1 Allergy status to other antibiotic agents; Z88.8 Allergy status to other drugs, medicaments and biological substances; Z88.2 Allergy status to sulfonamides; Z79.899 Other long term (current) drug therapy; Z80.9 Family history of malignant neoplasm, unspecified
CPT/HCPCS: 45385

== ENCOUNTER → 2018-05-18 | Outpatient (REF) | payer OTHER ==
[2018-05-18 18:27] LABS: FERRITIN 44 NG/ML (26-388); IRON (FE) 60 UG/DL (65-175); PERCENT SATURATION 19.2 % (19.7-50.0); TOTAL IRON BINDING CAPACITY 313 UG/DL (250-450)
== END ==
LOC: M LAB REF 16:44
DX: D50.9 Iron deficiency anemia, unspecified (principal)
CPT/HCPCS: 83550

== ENCOUNTER → 2018-09-13 | Outpatient (REF) | payer OTHER ==
[~2018-09-13] MED LIST changes: +ACET160S5 PO; +ACET1TAB55 PO; +AUGM875T28 PO; +FERR32TA PO; +FERRPOW27 XX; +LEVA1.2525; +LEVO125T4 PO; +RANI1TAB6 PO; +VENTAER INH
[2018-09-14 18:20] LABS: PERCENT SATURATION 42.4 % (19.7-50.0)
== END ==
LOC: M LAB REF 16:30
PROVIDERS: ATTEND Internal Medicine
DX: D50.9 Iron deficiency anemia, unspecified (principal)

== ENCOUNTER → 2018-12-03 | Outpatient (CLI) | payer OTHER ==
[~2018-12-03] MED LIST changes: -ACET160S5 PO; +TGTSUS3 PO
== END ==
LOC: M LAB 19:11
PROVIDERS: ATTEND Urology
DX: Z12.5 Encounter for screening for malignant neoplasm of prostate (principal)
CPT/HCPCS: 36415; G0103

== ENCOUNTER → 2018-12-05 | Outpatient (CLI) | payer OTHER ==
[2018-12-06 14:47] LABS: PSA TOTAL 3.6 ng/mL (0.0-4.0)
== END ==
LOC: M SMT 10:22
PROVIDERS: ATTEND Urology
DX: R97.20 Elevated prostate specific antigen [PSA] (principal)

== ENCOUNTER → 2019-03-15 | Outpatient (REF) | payer OTHER ==
[~2019-03-15] MED LIST changes: +RANI-356 PO; -RANI1TAB6 PO
[2019-03-15 13:19] LABS: PERCENT SATURATION 35.3 % (19.7-50.0)
== END ==
LOC: M LAB REF 12:25
PROVIDERS: ATTEND Internal Medicine
DX: D50.9 Iron deficiency anemia, unspecified (principal)

== ENCOUNTER → 2019-05-28 | Outpatient (CLI) | payer OTHER ==
[~2019-05-28] MED LIST changes: -RANI-356 PO; +RANI-397 PO
[2019-05-31 00:07] LABS: PSA FREE 0.69 ng/mL; PSA TOTAL 4.3 ng/mL (0.0-4.0)
== END ==
LOC: M PLALAB 10:25
PROVIDERS: ATTEND Urology
DX: R97.20 Elevated prostate specific antigen [PSA] (principal)

== ENCOUNTER → 2019-06-26 | Outpatient (CLI) | payer OTHER ==
--- NOTE | 2019-06-26 13:02 | REPPI ---
Prostate sonography: History: Elevated PSA Sonographic findings: Trans rectal prostate sonography demonstrates unremarkable seminal vesicles. Prostate gland is heterogeneously enlarged with calcifications and cystic changes noted. Glandular dimensions are measured at 4.5 x 3.2 x 5.2 cm with a calculated glandular volume of 38.8 ml. There is a 7 mm hypoechoic nodule on the left at the apex. Transrectal sonographic guidance is provided to Dr. [place] who performed trans rectal ultrasound guided needle biopsy procedure . Electronically Signed by Can Bourgeois MD 06/26/2019 12:54 P
== END ==
LOC: M SMT PRO 08:48
PROVIDERS: ATTEND Urology
DX: R97.20 Elevated prostate specific antigen [PSA] (principal)
CPT/HCPCS: 76872; 76942; G0416

== ENCOUNTER → 2019-08-23 | Outpatient (REF) | payer OTHER ==
[2019-08-23 13:59] LABS: PERCENT SATURATION 19.6 % (19.7-50.0)
== END ==
LOC: M LAB REF 12:38
PROVIDERS: ATTEND Internal Medicine
DX: D50.9 Iron deficiency anemia, unspecified (principal)

== ENCOUNTER → 2019-11-10 | Outpatient (CLI) | payer OTHER | LOC: M LABSMTC 08:55 | PROVIDERS: ATTEND Surgery | DX: Z01.818 Encounter for other preprocedural examination (principal); Z11.59 Encounter for screening for other viral diseases ==

== ENCOUNTER → 2020-04-07 | Outpatient (REF) | payer OTHER ==
[2020-04-07 14:20] LABS: PERCENT SATURATION 35.5 % (19.7-50.0)
== END ==
LOC: M LAB REF 12:49
PROVIDERS: ATTEND Internal Medicine
DX: D50.9 Iron deficiency anemia, unspecified (principal)

== ENCOUNTER → 2020-07-01 | Outpatient (CLI) | payer OTHER ==
[2020-07-02 23:07] LABS: PSA FREE 0.69 ng/mL; PSA TOTAL 4.3 ng/mL (0.0-4.0)
== END ==
LOC: M WUC 10:09
PROVIDERS: ATTEND Urology
DX: R97.20 Elevated prostate specific antigen [PSA] (principal)

== ENCOUNTER → 2020-10-22 | Outpatient (CLI) | payer OTHER ==
[~2020-10-22] MED LIST changes: +ACET-1439 PO; +ISOVUE-370 76% 100ML VIAL As Ordered ONE; -TGTSUS3 PO
--- NOTE | 2020-10-23 08:38 | REP ---
INDICATION: LT NECK MASS. Localized swelling mass or lump in the neck. COMPARISON: Comparison is made with soft tissue neck CT study from August 30, 2019.. TECHNIQUE: Helical scanning is acquired following the intravenous injection of 75 mL of Isovue 370. 3 mm axial images are re-formatted. Coronal and sagittal MPR images are provided. An opaque BB is affixed to the skin inferior to the region of interest on the left. FINDINGS: Digital preliminary event specialist food demonstrator views are unremarkable. There is spray artifact at the level of the teeth from dental amalgam. There is good opacification of the arterial tree and venous structures. No vascular abnormality is noted. Thyroid lobes are normal and symmetric. Parotid and submandibular glands are normal and symmetric. There is no evidence of suprahyoid or infrahyoid adenopathy. At the level of the opaque BB, I do not see a soft tissue mass or abnormal lymph node. The BB overlies the distal sternocleidomastoid muscle. Scattered small subcentimeter lymph nodes are seen in to be unchanged from the August 30, 2019 study. The cricoid and thyroid cartilages are appear intact. The superior tubercle of the left thyroid cartilage is slightly more prominent than that on the right. This is unchanged from the prior study. This is just above the level of the opaque BB. Is not felt to be an abnormality. Is considered as a possible etiology for palpation findings. Hyoid bone is unremarkable. The lung apices are clear. No bony destructive lesion is seen. There is degenerative spondylosis in the cervical spine with degenerative disc disease most pronounced at C4-5 C5-6 and C6-7. The epiglottis is normal. Glottic and subglottic airway are unremarkable. Tonsillar and peritonsillar soft tissues are unremarkable. IMPRESSION: No mass or adenopathy seen. Findings unchanged from the prior study. Slightly asymmetric superior tubercle of the thyroid cartilage as above, developmentally more prominent on the left than the right. Question correlation with palpation findings. <Electronically signed by Pool Bourgeois > 10/23/20 [id number]
== END ==
LOC: M RAD 17:31
PROVIDERS: ATTEND Internal Medicine
DX: R22.1 Localized swelling, mass and lump, neck (principal)
CPT/HCPCS: 70491; Q9967

== ENCOUNTER → 2020-11-10 | Outpatient (REF) | payer OTHER ==
[~2020-11-10] MED LIST changes: -ISOVUE-370 76% 100ML VIAL As Ordered ONE
[2020-11-10 17:24] LABS: PERCENT SATURATION 27.1 % (19.7-50.0)
== END ==
LOC: M LAB REF 16:17
PROVIDERS: ATTEND Internal Medicine
DX: D50.9 Iron deficiency anemia, unspecified (principal)

== ENCOUNTER → 2021-02-05 | Outpatient (REF) | payer OTHER | LOC: M LAB REF 09:16 | PROVIDERS: ATTEND Physician Assistant | DX: J02.9 Acute pharyngitis, unspecified (principal) ==

== ENCOUNTER 2021-04-10 07:29 | Outpatient (CLI) | payer BC ==
[~2021-04-10] VITALS: Ht 162.6 cm; Wt 74.5 kg
[~2021-04-10 07:29] MED LIST changes: +ALBUTEROL 90 MCG/ACT 8GM HFA INHALER INH PRN; +ALBUTEROL SULFATE 2.5 MG/0.5 ML INH NEB SOLN INH PRN; +EPINEPHrine INJ 1 MG/ML 1ML AMP IM PRN; +NS 1,000 ML IV SCH; +diphenhydrAMINE 50MG/ML VIAL (J1200) IV PRN; +methylPREDNISolone 125MG 2ML VIAL IV PRN
[2021-04-10 09:22] VITALS: BP 110/64
[2021-04-10] MEDS ORDERED: BAMLANIVIMAB 700 MG, ETESEVIMAB 1,400 MG in NS 250 ML IV ONE (09:30)
[2021-04-10 09:50] VITALS: BP 98/62
[2021-04-10 10:45] VITALS: BP 100/63
[2021-04-10 11:43] VITALS: BP 105/67
== END 2021-04-10 11:45 | disposition home or self-care (01) ==
LOC: M OPCLI4PR 07:29
PROVIDERS: ATTEND Internal Medicine
DX: U07.1 COVID-19 (principal); Z88.1 Allergy status to other antibiotic agents; Z88.2 Allergy status to sulfonamides; Z88.8 Allergy status to other drugs, medicaments and biological substances

== ENCOUNTER → 2021-05-13 | Outpatient (CLI) | payer BC ==
[~2021-05-13] MED LIST changes: -ALBUTEROL 90 MCG/ACT 8GM HFA INHALER INH PRN; -ALBUTEROL SULFATE 2.5 MG/0.5 ML INH NEB SOLN INH PRN; -EPINEPHrine INJ 1 MG/ML 1ML AMP IM PRN; -NS 1,000 ML IV SCH; -diphenhydrAMINE 50MG/ML VIAL (J1200) IV PRN; -methylPREDNISolone 125MG 2ML VIAL IV PRN
[2021-05-14 06:11] LABS: SARS-CoV-2 ANTIBODY IgM Positive (Negative)
== END ==
LOC: M WUC 08:56
PROVIDERS: ATTEND Internal Medicine
DX: Z01.84 Encounter for antibody response examination (principal)

== ENCOUNTER → 2021-08-06 | Outpatient (CLI) | payer OTHER ==
[2021-08-08 00:07] LABS: PSA % FREE 20.5 % (.); PSA FREE 0.88 ng/mL; PSA TOTAL 4.3 ng/mL (0.0-4.0)
== END ==
LOC: M WUC 10:11
PROVIDERS: ATTEND Urology
DX: R97.20 Elevated prostate specific antigen [PSA] (principal)

== ENCOUNTER → 2022-02-15 | Outpatient (CLI) | payer OTHER ==
[2022-02-17 23:07] LABS: PSA % FREE 21.2 % (.); PSA FREE 0.91 ng/mL; PSA TOTAL 4.3 ng/mL (0.0-4.0)
== END ==
LOC: M WUC 11:11
PROVIDERS: ATTEND Urology
DX: R97.20 Elevated prostate specific antigen [PSA] (principal)

== ENCOUNTER 2022-07-17 15:04 | Observation (INO) | payer OTHER, MEDICARE ==
[~2022-07-17] VITALS: Ht 162.6 cm; Wt 74.5 kg
[~2022-07-17 15:04] MED LIST changes: +MONT-5 PO; -SING10TA32 PO
[2022-07-17] MEDS ORDERED: ADV250INH INH (15:19)
[2022-07-17] MEDS ORDERED: NS 500 ML IV ONE (16:10)
[2022-07-17 16:44] LABS: BASO # 0.1 10^3/uL (0.0-0.2); BASO % 0.5 % (0.0-1.0); EOS # 0.2 10^3/uL (0.0-0.5); EOS % 1.6 % (0.0-3.0); HEMATOCRIT 45.5 % (42.0-52.0); HEMOGLOBIN 15.4 g/dl (13.5-17.5); LYMPH # 1.4 10^3/uL (1.5-5.0); LYMPH % 14.4 % (24.0-44.0); MEAN CORPUSCULAR HEMOGLOBIN 30.7 pg (27.0-33.0); MEAN CORPUSCULAR HGB CONC 33.8 g/dl (32.0-36.5); MEAN CORPUSCULAR VOLUME 90.6 fl (80.0-96.0); MONO # 0.7 10^3/uL (0.0-0.8); MONO % 7.1 % (2.0-8.0); NEUTROPHILS # 7.3 10^3/uL (1.5-8.5); NEUTROPHILS % 76.1 % (36.0-66.0); PLATELET COUNT, AUTOMATED 179 10^3/uL (150-450); RED BLOOD COUNT 5.02 10^6/uL (4.30-6.10); WHITE BLOOD COUNT 9.6 10^3/uL (4.0-10.0)
[2022-07-17] MEDS ORDERED: KETOROLAC 30 MG/ML 1ML VIAL IV ONE (17:30)
[2022-07-17 18:08] LABS: BLOOD UREA NITROGEN 19 MG/DL (9-23); CALCIUM LEVEL 8.9 MG/DL (8.3-10.6); CARBON DIOXIDE LEVEL 28 MMOL/L (20-31); CHLORIDE LEVEL 112 MMOL/L (98-107); CREATININE FOR GFR 1.02 MG/DL (0.70-1.30); GLOMERULAR FILTRATION RATE > 60.0 (>49); GLUCOSE, FASTING 108 MG/DL (74-106); POTASSIUM SERUM 4.8 MMOL/L (3.5-5.1); SODIUM LEVEL 145 MMOL/L (136-145)
[2022-07-17] MEDS ORDERED: KETO10TAB PO (18:37)
[2022-07-17] MEDS ORDERED: ONDA4TAB6 PO (18:37)
[2022-07-17] MEDS ORDERED: FLUT50SP33 (19:42)
[2022-07-17] MEDS ORDERED: HOME MED LIST COMPLETE! XX SCH (19:45)
[2022-07-17] MEDS ORDERED: ISOVUE-300 61% 100ML VIAL As Ordered ONE (19:50)
[2022-07-17] MEDS: ADVAIR HFA 115/21MCG INHALER INH SCH (20:00)
[2022-07-17 20:16] LABS: RSV AMPLIFICATION NEGATIVE (NEGATIVE)
[2022-07-17] MEDS ORDERED: NS 1,000 ML IV SCH (20:30)
[2022-07-17] MEDS ORDERED: ACETAMINOPHEN TAB 650MG DOSE (2X325MG) PO PRN (20:30)
[2022-07-17] MEDS ORDERED: MOM 30ML SUSPENSION UDC PO PRN (20:30)
[2022-07-17] MEDS ORDERED: fentaNYL 100 MCG/2 ML INJECTION As Ordered ONE (21:16)
[2022-07-17] MEDS ORDERED: LIDOCAINE 2% 100MG/5ML SDV (FOR ANES.) As Ordered ONE (21:16)
[2022-07-17] MEDS ORDERED: propofoL 200 MG/20 ML VIAL As Ordered ONE ×2 (21:16→21:39)
[2022-07-17] MEDS ORDERED: MIDAZOLAM INJ 2MG/2ML VIAL As Ordered ONE (21:16)
[2022-07-17] MEDS ORDERED: LR 1,000 ML IV SCH (21:50)
[2022-07-17] MEDS ORDERED: ONDANSETRON 4MG 2ML VIAL IV PRN (21:50)
[2022-07-17] MEDS ORDERED: oxyCODONE 5MG TAB PO PRN (21:50)
[2022-07-17] MEDS ORDERED: fentaNYL 100 MCG/2 ML INJECTION IV PRN (21:50)
[2022-07-17] MEDS ORDERED: GENTAMICIN IV ONE (22:00)
[2022-07-17] MEDS ORDERED: D5W IV ONE (22:00)
[2022-07-17] MEDS ORDERED: MEPERIDINE 25 MG/ML 1ML VIAL As Ordered ONE (22:06)
[2022-07-17] MEDS: MEPERIDINE 25 MG/ML 1ML VIAL IV PRN ×2 (22:08→22:13)
[2022-07-17 23:05] VITALS: BP 132/75
[2022-07-17 23:30] VITALS: BP 131/79
[2022-07-18] VITALS (8 sets, daily range): BP systolic 125–143; BP diastolic 76–93
[2022-07-18] MEDS ORDERED: LEVOTHYROXINE 125MCG TABLET (0.125MG) PO SCH (06:00)
[2022-07-18 07:48] LABS: HEMATOCRIT 41.2 % (42.0-52.0); HEMOGLOBIN 13.8 g/dl (13.5-17.5); MEAN CORPUSCULAR HEMOGLOBIN 31.4 pg (27.0-33.0); MEAN CORPUSCULAR HGB CONC 33.5 g/dl (32.0-36.5); MEAN CORPUSCULAR VOLUME 93.6 fl (80.0-96.0); PLATELET COUNT, AUTOMATED 146 10^3/uL (150-450); WHITE BLOOD COUNT 7.7 10^3/uL (4.0-10.0)
[2022-07-18 08:21] LABS: CK-MB VALUE MASS < 1.0 NG/ML (<3.6)
[2022-07-18 08:22] LABS: BLOOD UREA NITROGEN 18 MG/DL (9-23); CALCIUM LEVEL 8.4 MG/DL (8.3-10.6); CARBON DIOXIDE LEVEL 23 MMOL/L (20-31); CHLORIDE LEVEL 111 MMOL/L (98-107); CREATININE FOR GFR 0.95 MG/DL (0.70-1.30); GLOMERULAR FILTRATION RATE > 60.0 (>49); GLUCOSE, FASTING 144 MG/DL (74-106); POTASSIUM SERUM 3.8 MMOL/L (3.5-5.1); SODIUM LEVEL 142 MMOL/L (136-145)
[2022-07-18 08:26] LABS: CPK CREATINE PHOSPHOKINASE 116 U/L (46-171); MB/CK RELATIVE INDEX 0.86 (< OR =4)
[2022-07-18] MEDS ORDERED: MAG SULF 1GM/100ML (MAG RUN) 1 GM in IV 1 EA IV ONE (08:35)
[2022-07-18] MEDS: ADVAIR HFA 115/21MCG INHALER INH SCH (08:45)
[2022-07-18] MEDS ORDERED: HEPARIN SOD (PORCINE) 5000UNITS/ML 1ML VIAL/SYRINGE SC SCH (14:00)
[2022-07-24 14:08] LABS: CA Oxalate Dihy 20 % (.); Ca Ox Monohydrate 80 % (.); Size 8x6 mm (.)
== END 2022-07-18 12:30 | disposition home or self-care (01) ==
LOC: EDBD 15:04 → M ED 15:04 → M ED INP 15:05 → ENRESERV 20:57 → M MS5PR 23:05
PROVIDERS: ADMIT Family Medicine; ATTEND Internal Medicine
DX: N13.2 Hydronephrosis with renal and ureteral calculous obstruction (principal); R00.1 Bradycardia, unspecified; E83.42 Hypomagnesemia; E03.9 Hypothyroidism, unspecified; J45.909 Unspecified asthma, uncomplicated; Z79.51 Long term (current) use of inhaled steroids; Z79.899 Other long term (current) drug therapy; Z88.1 Allergy status to other antibiotic agents; Z88.2 Allergy status to sulfonamides; Z88.8 Allergy status to other drugs, medicaments and biological substances
CPT/HCPCS: 36415; 52332; 52352; 74176; 74420; 80048; 81000; 81015; 82365; 82550; 82553; 83605; 83735; 84484; 85025; 85027; 87631; 93005; 93041; 94640; 96361; 96374; 96375; 99285; C1769; C2617; J1580; J1885; J2175; J2250; J3010; J3475; Q9967

== ENCOUNTER 2022-07-21 15:05 | Emergency (ER) | payer OTHER, MEDICARE ==
[~2022-07-21] VITALS: Ht 162.6 cm; Wt 75.0 kg
[~2022-07-21 15:05] MED LIST changes: +FLUT50SP33; +KETO10TAB PO; -MONT-5 PO; +ONDA4TAB6 PO; +SING10TA32 PO
[2022-07-21] MEDS ORDERED: OXYB5TAB10 (15:25)
[2022-07-21] MEDS ORDERED: TAMS1CAP17 (15:25)
[2022-07-21 15:30] LABS: BASO # 0.1 10^3/uL (0.0-0.2); BASO % 0.8 % (0.0-1.0); EOS # 0.2 10^3/uL (0.0-0.5); EOS % 2.6 % (0.0-3.0); HEMATOCRIT 39.9 % (42.0-52.0); HEMOGLOBIN 13.6 g/dl (13.5-17.5); LYMPH # 1.4 10^3/uL (1.5-5.0); LYMPH % 18.5 % (24.0-44.0); MEAN CORPUSCULAR HEMOGLOBIN 31.1 pg (27.0-33.0); MEAN CORPUSCULAR HGB CONC 34.1 g/dl (32.0-36.5); MEAN CORPUSCULAR VOLUME 91.1 fl (80.0-96.0); MONO # 0.9 10^3/uL (0.0-0.8); NEUTROPHILS % 65.8 % (36.0-66.0); PLATELET COUNT, AUTOMATED 163 10^3/uL (150-450); RED BLOOD COUNT 4.38 10^6/uL (4.30-6.10); WHITE BLOOD COUNT 7.6 10^3/uL (4.0-10.0)
[2022-07-21 15:51] LABS: CK-MB VALUE MASS < 1.0 NG/ML (<3.6); LIPASE 25 U/L (12-53)
[2022-07-21 15:53] LABS: ALBUMIN 3.6 G/DL (3.2-5.2); ALKALINE PHOSPHATASE 68 U/L (46-116); ALT/SGPT 19 U/L (7.0-40); AST/SGOT 21 U/L (<34); BILIRUBIN,DIRECT 0.3 MG/DL (<0.4); BILIRUBIN,TOTAL 0.9 MG/DL (0.3-1.2); BLOOD UREA NITROGEN 16 MG/DL (9-23); CALCIUM LEVEL 8.7 MG/DL (8.3-10.6); CARBON DIOXIDE LEVEL 25 MMOL/L (20-31); CHLORIDE LEVEL 108 MMOL/L (98-107); GLOMERULAR FILTRATION RATE > 60.0 (>49); GLUCOSE, FASTING 85 MG/DL (74-106); MAGNESIUM LEVEL 1.9 MG/DL (1.8-2.4); SODIUM LEVEL 142 MMOL/L (136-145); TOTAL PROTEIN 6.3 G/DL (5.7-8.2)
[2022-07-21 15:55] LABS: THYROID STIMULATING HORMONE 4.042 uIU/ML (0.55-4.78)
[2022-07-21 15:56] LABS: CPK CREATINE PHOSPHOKINASE 101 U/L (46-171); MB/CK RELATIVE INDEX 0.99 (< OR =4)
[2022-07-21 17:05] LABS: MAGNESIUM LEVEL 1.8 MG/DL (1.8-2.4)
[2022-07-21 17:07] LABS: CPK CREATINE PHOSPHOKINASE 93 U/L (46-171)
[2022-07-21 17:08] LABS: CK-MB VALUE MASS < 1.0 NG/ML (<3.6); MB/CK RELATIVE INDEX 1.07 (< OR =4)
[2022-07-21] MEDS ORDERED: HOLTER MONITOR XX (17:15)
[2022-07-21 19:30] VITALS: BP 127/65
== END 2022-07-21 20:30 | disposition home or self-care (01) ==
LOC: M ED 15:05 → EDBD 15:05 → M ED 20:30
DX: R00.1 Bradycardia, unspecified (principal); J45.909 Unspecified asthma, uncomplicated; E03.9 Hypothyroidism, unspecified; Z88.1 Allergy status to other antibiotic agents; Z88.2 Allergy status to sulfonamides; Z88.8 Allergy status to other drugs, medicaments and biological substances; Z79.82 Long term (current) use of aspirin; Z79.52 Long term (current) use of systemic steroids; Z79.899 Other long term (current) drug therapy

== ENCOUNTER → 2022-08-02 | Outpatient (CLI) | payer OTHER, MEDICARE ==
[~2022-08-02] MED LIST changes: +HOLTER MONITOR XX; +OXYB5TAB10; +TAMS1CAP17
[2022-08-04 14:08] LABS: PSA % FREE 20.6 % (.); PSA FREE 1.07 ng/mL; PSA TOTAL 5.2 ng/mL (0.0-4.0)
== END ==
LOC: M WUC 09:23
PROVIDERS: ATTEND Urology
DX: R97.20 Elevated prostate specific antigen [PSA] (principal)

== ENCOUNTER → 2023-08-15 | Outpatient (CLI) | payer MEDICARE, OTHER ==
[~2023-08-15] MED LIST changes: +MONT-5 PO; -OXYB5TAB10; +OXYB5TAB14; -SING10TA32 PO
== END ==
LOC: M PLALAB 14:04
PROVIDERS: ATTEND Urology
DX: R97.20 Elevated prostate specific antigen [PSA] (principal)

== ENCOUNTER → 2023-11-01 | Outpatient (CLI) | payer OTHER ==
[~2023-11-01] MED LIST changes: +PROHANCE 279.3MG/ML 15ML VIAL ONE
== END ==
LOC: M PLAIMG 10:40
PROVIDERS: ATTEND Urology
DX: R97.20 Elevated prostate specific antigen [PSA] (principal); N40.0 Benign prostatic hyperplasia without lower urinary tract symptoms
CPT/HCPCS: 72197; A9576

== ENCOUNTER 2023-11-10 07:44 | Day surgery (SDC) | payer OTHER ==
[~2023-11-10] VITALS: Ht 162.6 cm; Wt 73.2 kg
[~2023-11-10 07:44] MED LIST changes: -PROHANCE 279.3MG/ML 15ML VIAL ONE
[2023-11-10] MEDS: NS 1,000 ML IV ONE (07:59)
[2023-11-10] MEDS ORDERED: LIDOCAINE 2% 100MG/5ML SDV (FOR ANES.) As Ordered ONE (09:21)
[2023-11-10] MEDS ORDERED: propofoL 200 MG/20 ML VIAL As Ordered ONE (09:40)
[2023-11-10 09:48] VITALS: TEMP 97.4
[2023-11-10 10:17] VITALS: BP 149/88; O2SAT 98
== END 2023-11-10 10:26 | disposition home or self-care (01) ==
LOC: M OPP 07:44
PROVIDERS: ATTEND Surgery
DX: Z12.11 Encounter for screening for malignant neoplasm of colon (principal); Z86.010 Personal history of colon polyps; D12.6 Benign neoplasm of colon, unspecified; K64.4 Residual hemorrhoidal skin tags; K64.8 Other hemorrhoids; K57.30 Diverticulosis of large intestine without perforation or abscess without bleeding; Z79.51 Long term (current) use of inhaled steroids; Z79.890 Hormone replacement therapy; Z79.899 Other long term (current) drug therapy; Z88.1 Allergy status to other antibiotic agents; Z88.2 Allergy status to sulfonamides

== ENCOUNTER → 2023-11-16 | Outpatient (REF) | payer OTHER ==
[2023-11-17 23:09] LABS: PSA % FREE 22.8 % (.); PSA FREE 1.05 ng/mL; PSA TOTAL 4.6 ng/mL (0.0-4.0)
== END ==
LOC: M LABWUC 12:55
PROVIDERS: ATTEND Urology
DX: R97.20 Elevated prostate specific antigen [PSA] (principal)